=== PATIENT | male | born 1995 | race Two or more races ===

== ENCOUNTER 2021-07-22 11:33 | Emergency (ER) | payer MEDICAID ==
[~2021-07-22] VITALS: Ht 162.6 cm; Wt 68.0 kg
[2021-07-22] MEDS ORDERED: HYDROMORPHONE 1 MG/1 ML DISP.SYRIN ONE (12:07)
[2021-07-22] MEDS ORDERED: ONDANSETRON 4 MG/2 ML VIAL ONE (12:07)
[2021-07-22] MEDS: HYDROMORPHONE 1 MG/1 ML DISP.SYRIN IV ONE (12:10)
[2021-07-22] MEDS: ONDANSETRON 4 MG/2 ML VIAL IV ONE (12:10)
[2021-07-22] MEDS: CEFAZOLIN 1 G in IV DEXTROSE 5% 50 ML IV ONE (12:20)
[2021-07-22] MEDS ORDERED: CEFAZOLIN 1 G VIAL ONE (12:26)
[2021-07-22] MEDS: TDAP DIPH,PERTUSS,TET VAC/PF 0.5 ML DISP.SYRIN IM ONE (12:55)
--- NOTE | 2021-07-22 14:06 | NUR ---
Laceration tray setup, ready for provider.
[2021-07-22] MEDS: LIDOCAINE HCL 1% 20 ML VIAL IJ ONE (14:12)
[2021-07-22] MEDS ORDERED: HYDR-3972 PO ×2 (15:26→15:28)
[2021-07-22] MEDS ORDERED: CEPH500C2 PO (15:26)
[2021-07-22] MEDS ORDERED: NEOMY/BACITRA/POLYMYXIN B OINT UD PACKET TP ONE (15:28)
--- NOTE | 2021-07-22 15:28 | NUR ---
Wound was cleaned with saline and gauze. Dressed with triple ABX, gauze bulky dressing and pt was fitted with velcro thumb spica, per provider order. Miladys pt on proper use and wear of orthopedic appliance. Pt states understanding information/instructions provided.
[2021-07-22] MEDS: NEOMY/BACITRA/POLYMYXIN B OINT UD PACKET TP ONE (15:36)
--- NOTE | 2021-07-22 15:36 | NUR ---
Patient discharged to home in stable condition. Written and verbal after care instructions given. Recommended pt not drive due to administration of narcotic medication. Patient verbalizes understanding of instructions. Stressed follow up or return to ER for worsening s/s.
[2021-07-22 15:37] VITALS: BP 127/76
== END 2021-07-22 15:35 | disposition home or self-care (01) ==
LOC: ER 11:33
DX: S62.522B Displaced fracture of distal phalanx of left thumb, initial encounter for open fracture (principal); W26.9XXA Contact with unspecified sharp object(s), initial encounter; Y93.89 Activity, other specified; Y92.89 Other specified places as the place of occurrence of the external cause
CPT/HCPCS: 11760; 73140; 96365; 96375; 99284; J0690; J1170; J2405; J3490; A4217; A4663; J7050

== ENCOUNTER 2021-07-24 18:10 | Emergency (ER) | payer MEDICAID ==
[~2021-07-24] VITALS: Ht 162.6 cm; Wt 68.0 kg
[~2021-07-24 18:10] MED LIST: CEPH500C2 PO; HYDR-3972 PO
--- NOTE | 2021-07-24 18:22 | NUR ---
Pt here on Tuesday for left thumb lac. Wound wrapped in roller gauze and hand/wrist splint in place. Pt in extreme pain when trying to remove splint (sticking to gauze). Softening bandage w/saline. Will try removing again.
[2021-07-24] MEDS ORDERED: ONDANSETRON ODT 4 MG TAB.RAPDIS ONE (18:40)
[2021-07-24] MEDS ORDERED: HYDROMORPHONE 2 MG/1 ML DISP.SYRIN ONE (18:41)
[2021-07-24] MEDS ORDERED: HYDROMORPHONE 1 MG/1 ML DISP.SYRIN IM ONE (18:45)
[2021-07-24] MEDS ORDERED: ONDANSETRON ODT 4 MG TAB.RAPDIS SL ONE (18:45)
[2021-07-24] MEDS ORDERED: TDAP DIPH,PERTUSS,TET VAC/PF 0.5 ML DISP.SYRIN IM ONE (19:28)
[2021-07-24] MEDS ORDERED: HYDR-4209 PO (19:43)
[2021-07-24] MEDS ORDERED: MAGNESIUM HYDROXIDE 30 ML LIQUID UDC PO ONE (19:45)
[2021-07-24] MEDS ORDERED: MAGNESIUM HYDROXIDE 30 ML LIQUID UDC ONE (19:53)
--- NOTE | 2021-07-24 19:55 | NUR ---
Patient discharged to home in stable condition. Written and verbal after care instructions given. Patient verbalizes understanding of instructions. Stressed follow up or return to ER for worsening s/s. Patient out of ER with steady gait, no acute signs of distress, VSS, all belongings taken, instructed not to drive, to be driven home by via private vehicle.
[2021-07-24 19:56] VITALS: BP 117/70
== END 2021-07-24 19:57 | disposition home or self-care (01) ==
LOC: ER 18:14
DX: S62.522D Displaced fracture of distal phalanx of left thumb, subsequent encounter for fracture with routine healing (principal); X58.XXXD Exposure to other specified factors, subsequent encounter
CPT/HCPCS: 29125; 96372; 99283; J1170; 90715; A4217; A4663; Q0162

== ENCOUNTER 2021-08-01 14:28 | Emergency (ER) | payer MEDICAID ==
[~2021-08-01] VITALS: Ht 157.5 cm; Wt 68.0 kg
[~2021-08-01 14:28] MED LIST changes: +HYDR-4209 PO
--- NOTE | 2021-08-01 14:55 | NUR ---
[email or web address], medical screening exam in progress
--- NOTE | 2021-08-01 15:22 | NUR ---
Patient discharged to home in stable condition with brisk steady gait. Written and verbal after care instructions given to patient. Patient verbalized understandingand compliance of instructions. Stressed follow up with primary doctor or return to ER for worsening s/s.
== END 2021-08-01 15:22 | disposition home or self-care (01) ==
LOC: ER 14:31
DX: S61.012D Laceration without foreign body of left thumb without damage to nail, subsequent encounter (principal); W45.8XXD Other foreign body or object entering through skin, subsequent encounter
CPT/HCPCS: A4663